=== PATIENT | female | born 1955 | race Caucasian/White ===

== ENCOUNTER 2017-06-22 13:36 | Emergency (ER) | payer MEDICARE, OTHER ==
[~2017-06-22] VITALS: Ht 165.1 cm; Wt 65.8 kg
[~2017-06-22 13:36] MED LIST: BUSP5 PO; CYCL10 PO; DOCU100 PO; ESTR.1TPBW TOP; IBUP800 PO; LORA1 PO; METPRE4DP PO; Naprosyn500 MG PO; Norco 5-325 Ta1 EACH PO; OXYACE5T PO; PARO20 PO; QUET25 PO; TRAZ100 PO
[2018-06-08] MEDS ORDERED: CLON1 PO (14:31)
[2018-06-08] MEDS ORDERED: Aspir 8181 MG PO (14:32)
[2018-06-08] MEDS ORDERED: MIRT15 PO (14:32)
[2018-06-08] MEDS ORDERED: DIVIGEL1 GM VAG (14:32)
[2018-06-08] MEDS ORDERED: Omeprazole20 M1 PO (14:33)
== END 2017-06-22 15:24 | disposition home or self-care (01) ==
LOC: ER 13:36
DX: S70.312A Abrasion, left thigh, initial encounter (principal); L98.9 Disorder of the skin and subcutaneous tissue, unspecified; Z88.1 Allergy status to other antibiotic agents; Z88.8 Allergy status to other drugs, medicaments and biological substances; Z79.899 Other long term (current) drug therapy; Z90.49 Acquired absence of other specified parts of digestive tract; Z87.891 Personal history of nicotine dependence
CPT/HCPCS: 99282

== ENCOUNTER 2017-08-22 14:07 | Emergency (ER) | payer OTHER, MEDICARE ==
[~2017-08-22] VITALS: Ht 165.1 cm; Wt 68.0 kg
[2017-08-22] MEDS ORDERED: CLON.5 PO (14:47)
[2017-08-22] MEDS ORDERED: Robaxin500 MG PO (15:39)
[2018-06-08] MEDS ORDERED: CLON1 PO (14:31)
[2018-06-08] MEDS ORDERED: MIRT15 PO (14:32)
[2018-06-08] MEDS ORDERED: Aspir 8181 MG PO (14:32)
[2018-06-08] MEDS ORDERED: DIVIGEL1 GM VAG (14:32)
[2018-06-08] MEDS ORDERED: Omeprazole20 M1 PO (14:33)
== END 2017-08-22 15:58 | disposition home or self-care (01) ==
LOC: ER 14:07
DX: M54.2 Cervicalgia (principal); M25.551 Pain in right hip; M54.5 Low back pain; V43.52XA Car driver injured in collision with other type car in traffic accident, initial encounter; Z88.8 Allergy status to other drugs, medicaments and biological substances; Z88.1 Allergy status to other antibiotic agents; Z79.899 Other long term (current) drug therapy; F17.200 Nicotine dependence, unspecified, uncomplicated
CPT/HCPCS: 72040; 72100; 73502; 99283

== ENCOUNTER 2017-08-26 10:32 | Emergency (ER) | payer MEDICARE, OTHER ==
[~2017-08-26] VITALS: Ht 165.1 cm; Wt 67.6 kg
[~2017-08-26 10:32] MED LIST changes: +CLON.5 PO; +Robaxin500 MG PO
[2017-08-26] MEDS ORDERED: Naltrexone HCl50 MG PO (11:03)
[2017-08-26] MEDS ORDERED: PRED10 PO (11:03)
[2017-08-26] MEDS ORDERED: OLAN5 PO (11:04)
[2017-08-26] MEDS ORDERED: Norco 5-325 Ta1 EACH PO (11:57)
[2018-06-08] MEDS ORDERED: CLON1 PO (14:31)
[2018-06-08] MEDS ORDERED: Aspir 8181 MG PO (14:32)
[2018-06-08] MEDS ORDERED: DIVIGEL1 GM VAG (14:32)
[2018-06-08] MEDS ORDERED: MIRT15 PO (14:32)
[2018-06-08] MEDS ORDERED: Omeprazole20 M1 PO (14:33)
== END 2017-08-26 12:15 | disposition home or self-care (01) ==
LOC: ER 10:32
DX: S70.02XA Contusion of left hip, initial encounter (principal); F17.200 Nicotine dependence, unspecified, uncomplicated; Z88.8 Allergy status to other drugs, medicaments and biological substances; Z88.1 Allergy status to other antibiotic agents; Z79.899 Other long term (current) drug therapy; W18.30XA Fall on same level, unspecified, initial encounter
CPT/HCPCS: 73502; 96374; 96375; 99284; J2405; J3010

== ENCOUNTER → 2017-10-11 | Outpatient (CLI) | payer MEDICARE, OTHER ==
[~2017-10-11] MED LIST changes: +Naltrexone HCl50 MG PO; +OLAN5 PO; +PRED10 PO
[2017-10-13 12:10] LABS: HPV Genotype 16 Not Detected (NOTDET); HPV Genotype 18 Not Detected (NOTDET)
[2017-10-17 14:07] LABS: HPV High Risk Other Not Detected (NOTDET)
== END | disposition home or self-care (01) ==
LOC: LAB SHORT 10:41 → LAB 10:41
PROVIDERS: Obstetrics & Gynecology
DX: N87.9 Dysplasia of cervix uteri, unspecified (principal)
CPT/HCPCS: 87624; 88142

== ENCOUNTER 2017-11-29 12:06 | Day surgery (SDC) | payer MEDICARE, OTHER ==
[~2017-11-29] VITALS: Ht 167.6 cm; Wt 73.8 kg
[2017-11-29] MEDS ORDERED: MIRT15ST (12:41)
[2017-11-29] MEDS ORDERED: VARE1 (12:42)
[2017-11-29] MEDS ORDERED: ESTR2 (12:43)
== END 2017-11-29 13:59 | disposition home or self-care (01) ==
LOC: ORSCSDS 12:06
PROVIDERS: Internal Medicine Gastroenterology
PROC: 0DBN8ZX Excision of Sigmoid Colon, Via Natural or Artificial Opening Endoscopic, Diagnostic (ICD-10-PCS; principal; 2017-11-29 13:30)
PROC: 0DBE8ZX Excision of Large Intestine, Via Natural or Artificial Opening Endoscopic, Diagnostic (ICD-10-PCS; principal; 2017-11-29 13:30)
DX: R19.4 Change in bowel habit (principal); K63.5 Polyp of colon; K64.8 Other hemorrhoids; J44.9 Chronic obstructive pulmonary disease, unspecified; E78.5 Hyperlipidemia, unspecified; M79.7 Fibromyalgia; K21.9 Gastro-esophageal reflux disease without esophagitis; F41.8 Other specified anxiety disorders; F17.210 Nicotine dependence, cigarettes, uncomplicated; Z79.899 Other long term (current) drug therapy
CPT/HCPCS: 88305; J7120

== ENCOUNTER 2023-03-02 08:58 | Day surgery (SDC) | payer OTHER ==
[~2023-03-02] VITALS: Ht 162.6 cm; Wt 60.5 kg
[~2023-03-02 08:58] MED LIST changes: +Aspir 8181 MG PO; +CLON1 PO; +DIVIGEL1 GM VAG; +ESTR2; +MIRT15 PO; +MIRT15ST; +Omeprazole20 M1 PO; +VARE1
[2023-03-02] MEDS ORDERED: FOLI1 (09:21)
[2023-03-02] MEDS ORDERED: OLAN2.5 (09:21)
[2023-03-02] MEDS ORDERED: BRINTELLIX5 MG (09:22)
[2023-03-02 12:10] VITALS: BP 134/70
--- NOTE | 2023-03-02 12:11 | NUR ---
03/02/23 1211 Azul Lamb IV DC'D CATH INTACT. PT TOLERATED WELL. GAUZE/COBAN IN PLACE
== END 2023-03-02 12:09 | disposition home or self-care (01) ==
LOC: ORSCSDS 08:58
PROVIDERS: Internal Medicine Gastroenterology
PROC: 0DBP8ZX Excision of Rectum, Via Natural or Artificial Opening Endoscopic, Diagnostic (ICD-10-PCS; principal; 2023-03-02 10:00)
DX: Z12.11 Encounter for screening for malignant neoplasm of colon (principal); R19.5 Other fecal abnormalities; Z86.010 Personal history of colon polyps; K62.1 Rectal polyp; J44.9 Chronic obstructive pulmonary disease, unspecified; F32.3 Major depressive disorder, single episode, severe with psychotic features; F41.9 Anxiety disorder, unspecified; K57.30 Diverticulosis of large intestine without perforation or abscess without bleeding; K64.4 Residual hemorrhoidal skin tags; F17.210 Nicotine dependence, cigarettes, uncomplicated; Z79.82 Long term (current) use of aspirin; Z79.899 Other long term (current) drug therapy
CPT/HCPCS: 88305; J2704; J7120